=== PATIENT | male | born 1960 | race Caucasian/White ===

== ENCOUNTER 2017-05-02 07:43 | Emergency (ER) | payer OTHER ==
[2016-03-09 06:32] VITALS: BMI 38.0
[~2017-05-02 07:43] MED LIST: HYDROCODONE-APA1 TAB PO; LIPITOR20 MG PO
== END 2017-05-02 09:27 | disposition home or self-care (01) ==
LOC: D.ER 07:43
DX: M79.641 Pain in right hand (principal); G56.01 Carpal tunnel syndrome, right upper limb

== ENCOUNTER 2017-08-03 10:45 | Outpatient (CLI) | payer OTHER ==
[~2017-08-03] VITALS: Ht 180.3 cm; Wt 122.7 kg
--- NOTE | ~2017-08-03 | HEMODYNAMI ---
PATIENT:ERI LOMBARDI JR MEDICAL RECORD: [id number] : 56 LOCATION:[facility] ADMISSION DATE: 08/03/17 Generatedon:08/03/201714:30 Patient name: ERI LOMBARDI Patient #: [id number] SSN: : 1960 Date of study: 08/03/2017 Page: Of Hemodynamic Procedure Report Patient Data Patient Demographics Procedure consent was obtained First Name: ERI Gender: Male Last Name: MARIA C Suffix: Patient #: [id number] : 1960 Age: 57 year(s) Accession #: Race: Unknown [id number] Additional ID: [id number] Contact details Address: [place] [address] [place] [place] [facility] Zip code: [address] Past Medical History Allergies: No known allergies Admission Admission Data Admission Date: 08/03/2017 Admission Time: 10:45 Lab Results Lab Result Date: 08/03/2017 Lab Result Time: 0:00 Biochemistry Name Units Result Min Max BUN mg/dl 13 --(--*-)-- 7 18 Creatinine mg/dl 0.8 --(-*--)-- 0.6 1.3 CBC Name Units Result Min Max Hemoglobin g/dl 13.9 --(*---)-- 13.5 17.5 Procedure Procedure Types Cath Procedure Diagnostic Procedure [facility] w/Coronaries Miscellaneous Procedures Moderate Sedation up to 15 minutes Procedure Description Procedure Date Procedure Date: 08/03/2017 Procedure Start Time: 14:10 Procedure End Time: 14:30 Procedure Staff Name Function Clyde Quintero MD Performing Physician Ines Murphy RT Monitor Hansa Felder RT Scrub Alla Griffin RN Nurse Indication Angina Procedure Data Cath Procedure Fluoroscopy Diagnostic fluoroscopy Total fluoroscopy Time: 1.5 time: 1.5 min min Diagnostic fluoroscopy Total fluoroscopy dose: 571 dose: 571 mGy mGy Contrast Material Contrast Material Type Amount (ml) Isovue 300 62 Entry Location Entry Primary Successful Side Size Upsize Upsize Entry Closure Succes sful Closure Location (Fr) 1 (Fr) 2 (Fr) Remarks Device Remarks Femoral Right 5 Fr Exoseal artery Estimated blood loss: 10 ml Diagnostic catheters Device Type Used For End Catheter Placement MULTIPACK JL 4.0 5Fr Procedure catheter MULTIPACK 3DRC 5Fr Procedure catheter MULTIPACK Pigtail 5 Fr LV Angiography catheter Procedure Complications No complications Procedure Medications Medication Administration Route Dosage 0.9% NaCl I.V. 100 ml/hr Oxygen NC 2 l/min Lidocaine 2% added to field 20 Heparin Flush Bag added to field 2 bags (1000units/500ml NS) Fentanyl I.V. 50 mcg Versed I.V. 1 mg Versed I.V. 1 mg Fentanyl I.V. 50 mcg Versed I.V. 2 mg Fentanyl I.V. 50 mcg Hemodynamics Rest Heart Rate: 77 (bpm) Pressure Samples Time Site Value (mmHg) Purpose Heart Use Rate(bpm) 14:18 LV 124/-4,15 Snapshot 77 14:19 AO 116/70(90) Pullback 78 14:19 LV 125/-4,13 Pullback 78 Gradients Valve Time Site 1 Site 2 Mean SEP/DFP Peak To Heart Use (mmHg) (sec/min) Peak Rate (mmHg) (bpm) Aortic 14:19 LV AO 11 16 9 78 125/-4,13 116/70(90) Calculations Valve P-P Mean Valve Index Valve Source Name Gradient Area Flow (cm2) Aortic 9 11 9 11 Snapshots Pre Cath Intra NCS Post Cath Vital Signs Time Heart Resp SPO2 NIBP (mmHg) Rhythm Pain Sedation Rate (ipm) (%) Status Level (bpm) 13:58:36 70 17 100 154/91(123) NSR 0 (11) 10(A) , No pain 14:02:52 74 17 100 146/92(108) NSR 0 (11) 10(A) , No pain 14:07:16 61 21 99 147/86(110) NSR 0 (11) 10(A) , No pain 14:11:37 73 15 98 145/87(108) NSR 0 (11) 10(A) , No pain 14:15:53 75 16 98 143/86(105) NSR 0 (11) 9(A) , No pain 14:20:15 80 20 98 150/88(113) NSR 0 (11) 9(A) , No pain 14:24:39 79 18 98 134/82(102) NSR 0 (11) 10(A) , No pain 14:28:59 77 15 98 143/84(107) NSR 0 (11) 10(A) , No pain Medications Time Medication Route Dose Verified Delivered Reason Notes Effe ctiveness by by 13:57:38 0.9% NaCl I.V. 100 Clyde Alla used for ml/hr Leon Griffin RN procedure 13:57:46 Oxygen NC 2 Clyde Alla Per l/min Leon Griffin RN physician 13:57:53 Lidocaine 2% added 20ml Clyde Clyde for local to vial Leon Quintero MD anesthetic field 13:58:02 Heparin Flush added 2 Clyde Clyde used for Bag to bags Leon Quintero MD procedure (1000units/500ml field NS) 14:02:27 Fentanyl I.V. 50 Clyde Alla for mcg Leon Griffin RN sedation 14:02:36 Versed I.V. 1 mg Clyde Alla for Leon Griffin RN sedation 14:08:12 Versed I.V. 1 mg Clyde Alla for Leon Griffin RN sedation 14:08:20 Fentanyl I.V. 50 Clyde Alla for kriss Griffin RN sedation 14:13:15 Versed I.V. 2 mg Clyde Alla for Leon Griffin RN sedation 14:18:41 Fentanyl I.V. 50 Clyde Alla for kriss Griffin RN sedation Procedure Log Time Note 13:48:24 Diagnostic Cath Status : Elective 13:48:44 Indication : Angina 13:49:08 Alla Griffin RN sent for patient. Start room use. 13:49:09 Time tracking: Regular hours 13:49:14 Plan of Care:Hemodynamics will remain stable., Cardiac rhythm will remain stable., Comfort level will be maintained., Respiratory function will remain adequate., Patient/ family verbilizes understanding of procedure., Procedure tolerated without complication., Recovers from procedure without complications.. 13:51:52 Patient received from Pre/Post Procedure Room to [facility] 2 Alert and oriented. Tansferred to table in Supine position. 13:51:53 Warm blankets applied, and ankit hugger turned on for patient comfort. 13:51:53 Correct patient and procedure confirmed by team. 13:51:56 Signed procedure consent form obtained from patient. 13:52:09 H&P Date Dictated: 08/03/2017 Within 30 days and on chart.. 13:52:11 Pre-procedure instructions explained to patient. 13:52:15 Family in waiting room. 13:52:17 Patient NPO since Midnight. 13:57:22 Vital chart was started 13:57:38 0.9% NaCl 100 ml/hr I.V. was administered by Alla Griffin RN; used for procedure; 13:57:46 Oxygen 2 l/min NC was administered by Alla Griffin RN; Per physician; 13:57:53 Lidocaine 2% 20ml vial added to field was administered by Clyde Quintero MD; for local anesthetic; 13:58:02 Heparin Flush Bag (1000units/500ml NS) 2 bags added to field was administered by Clyde Quintero MD; used for procedure; 14:00:07 Patient allergic to No known allergies 14:00:10 Was the patient premedicated? Yes 14:00:12 Is patient on blood thinner?No 14:00:13 Patient diabetic? No. 14:00:17 Snore? Yes 14:00:19 Sleep apnea? No 14:00:25 Dentures? No ? 14:00:42 IV patent on arrival in left forearm with 0.9% NaCl at [facility]. 14:01:17 Lab Result : BUN 13 mg/dl 14:01:17 Lab Result : Hemoglobin 13.9 g/dl 14:01:17 Lab Result : Creatinine 0.8 mg/dl 14:01:21 Lab results completed and on chart. 14:01:25 Right groin area was prepped with chlora-prep and draped in sterile fashion 14:01:26 Alarms reviewed by R. N. 14::27 Sharps counted by scrub and verified by R.N. 14:01:27 Physician paged 14:01:28 Physician arrived 14::29 --------ALL STOP TIME OUT------ 14::29 Final Timeout: patient, procedure, and site verified with staff and physician. All members of the team are in agreement. 14:01:33 Right groin site verified by team. 14:01:37 Physical assessment completed. ASA score P 2 - A patient with mild systemic disease as per Clyde Quintero MD. 14:01:45 Sedation plan: IV Moderate Sedation Medication:Versed, Fentanyl 14:01:50 Use device set Femoral Dx 14:02:27 Fentanyl 50 mcg I.V. was administered by Alla Griffin RN; for sedation; 14:02:36 Versed 1 mg I.V. was administered by Alla Griffin RN; for sedation; 14:08:12 Versed 1 mg I.V. was administered by Alla Griffin RN; for sedation; 14:08:20 Fentanyl 50 mcg I.V. was administered by Alla Griffin RN; for sedation; 14:08:42 Zero performed for pressure channel P1 14:08:50 ACIST Syringe (39461) opened to sterile field. 14:08:50 Bag Decanter (2002S) opened to sterile field. 14:08:51 Medline Cath Pack ([id number]) opened to sterile field. 14:08:55 SHEATH 5FR [place] (OLC335) opened to sterile field. 14:08:56 DIAGNOSTIC WIRE .035 260cm J wire (282345) opened to sterile field. 14:08:59 ACIST Hand Control (17736) opened to sterile field. 14:08:59 ACIST Manifold (05719) opened to sterile field. 14:09:00 DIAGNOSTIC Multipack 5Fr catheter set ([id number]) opened to sterile field. 14:09:01 Tegaderm 4 x 4 (1626W) opened to sterile field. 14:09:02 PERCUTANEOUS ENTRY 19GA needle opened to sterile field. 14:10:06 Procedure started. 14:10:06 Full Disclosure recording started 14:10:26 Local anesthetic to right femoral artery with Lidocaine 2% by Clyde Quintero MD.INITIAL ACCESS ONLY 14:12:15 A 5 Fr sheath was inserted into the Right Femoral artery 14:12:39 A MULTIPACK JL 4.0 5Fr catheter was advanced over the wire and used for Procedure. 14:12:42 LCA angiography performed. 14:13:15 Versed 2 mg I.V. was administered by Alla Griffin RN; for sedation; 14:15:09 Catheter removed. 14:15:24 A MULTIPACK 3DRC 5Fr catheter was advanced over the wire and used for Procedure. 14:15:29 RCA angiography performed. 14:17:09 Catheter removed. 14:17:33 A MULTIPACK Pigtail 5 Fr catheter was advanced over the wire and used for LV Angiography. 14:17:41 LV gram done using SHARMA 14:18:41 Fentanyl 50 mcg I.V. was administered by Alla Griffin RN; for sedation; 14:19:00 EF : 55 % 14:19:46 Catheter removed. 14:24:27 EXOSEAL 5Fr (EX500) opened to sterile field. 14:26:50 Sheath removed intact; hemostasis achieved with Exoseal to the Right Femoral artery. 14:27:47 sheath exchanged for another 5 fr because it clotted off before the exoseal was placed. 14:28:14 Procedure ended.(Physican Out) 14:28:31 Fluoroscopy time 01.50 minutes. 14:28:36 Fluoroscopy dose: 571 mGy 14:28:36 Flurop Dose total: 571 14:28:40 Contrast amount:Isovue 300 62ml. 14:28:42 Sharps counted by scrub and verified by R.N. 14:28:43 Insertion/operative site no bleeding no hematoma. 14:28:47 Post right femoral artery:stable 14:28:49 Post Procedure Pulses reassessed and unchanged 14:28:55 Post procedure rhythm: unchanged. 14:28:58 Estimated blood loss: 10 ml 14:28:59 Post procedure instruction explained to patient.Patient verbalizes understanding. 14:29:16 Procedure type changed to Cath procedure, Diagnostic procedure, LHC, LHC w/Coronaries, Miscellaneous Procedures, Moderate Sedation up to 15 minutes 14:29:17 Procedure and supply charges have been captured, reviewed, submitted and are correct. 14:29:58 Procedure Complication : No complications 14:30:01 Vital chart was stopped 14:30:02 See physician's report for complete and final results. 14:30:03 Report given to Pre/Post Procedure Room. 14:30:06 Patient transfered to Pre/Post Procedure Room with Stretcher. 14:30:09 Procedure ended. 14:30:09 Full Disclosure recording stopped 14:30:12 End room use (Document Last) Device Usage Item Name Manufacture Quantity Catalog Hospital Part Current Minimal Lot# / Number Charge Number Stock Stock Serial# Code [facility] 1 13812 269632 332362 955818 20 Syringe Medical (97850) Systems Inc Bag Decanter Microtek 1 2001S 874188 56161 655114 5 (2001S) Medical Inc. Medline Cath Cardinal 1 [id number] 105165 53531 597785 5 Pack Health ([id number]) SHEATH 5FR Terumo 1 OAS910 702214 627887 195325 40 [place] (PLY537) DIAGNOSTIC St Maksim 1 008727 290759 696424 625457 30 WIRE .035 260cm J wire (048312) ACIST Hand Acist 1 12344 677107 716658 179087 5 Control Medical (79229) Systems Inc ACIST Acist 1 94445 388928 051129 437687 5 Manifold Medical (84613) Systems Inc DIAGNOSTIC Cardinal 1 QN5954 497805 01545 505300 30 Multipack Health 5Fr catheter set ([id number]) Tegaderm 4 x 3M 1 1626W 817573 659653 370998 5 4 (1626W) PERCUTANEOUS [facility] 1 [id number] 138729 495473 5 ENTRY 19GA needle MULTIPACK JL Cardinal 1 622397 5 4.0 5Fr Health catheter MULTIPACK Cardinal 1 708682 5 3DRC 5Fr Health catheter MULTIPACK Cardinal 1 617303 5 Pigtail 5 Fr Health catheter EXOSEAL 5Fr Cardinal 1 EX500 582837 917229 209975 10 (EX500) Health Signature Audit [place] Stage Time Signature Unsigned Intra-Procedure 08/03/2017 Ines Murphy 2:30:40 PM RT(R) Signatures Monitor : Ines Murphy Signature : RT Date : Time : [facility] [address] [place] [address]
[2017-08-03] MEDS ORDERED: PRAVACHOL20 MG PO (11:05)
[2017-08-03] MEDS ORDERED: LASIX40 MG PO (11:06)
[2017-08-03] MEDS ORDERED: INDOCIN25 MG PO (11:06)
[2017-08-03] MEDS ORDERED: BUMEX2 MG PO (11:08)
[2017-08-03 11:15] VITALS: BP 128/77; Ht 180.3 cm; Wt 122.7 kg
[2017-08-03 11:22] LABS: BASOPHILS 0.1 % (0-2); EOSINOPHILS 4.4 % (0-7); HEMATOCRIT 37.9 % (42.0-54.0); HEMOGLOBIN 12.8 g/dL (13.5-17.5); IMMATURE GRANULOCYTES 0.4 % (0-5); MCH 28.8 pg (26.0-34.0); MCHC 33.8 g/dL (31.0-37.0); MCV 85.4 fL (80.0-100.0); MEAN PLATELET VOLUME 9.4 fL (7.4-10.4); MONOCYTES 9.6 % (2-11); NEUTROPHILS 62.5 % (40-80); RBC 4.44 10x6/uL (4.20-6.10); RDW 15.5 % (11.5-14.5); WBC 8.5 10x3/uL (4.8-10.8)
[2017-08-03 11:31] LABS: ANION GAP 12.6 mmol/L (8-16); CALCIUM 10.1 mg/dL (8.5-10.1); CARBON DIOXIDE 32.5 mmol/L (21.0-32.0); CREATININE - SERUM 1.2 mg/dL (0.6-1.3); POTASSIUM - SERUM 3.1 mmol/L (3.5-5.1)
[2017-08-03 11:32] LABS: PLATELET COUNT 288 10x3/uL (130-400)
[2017-08-03] MEDS ORDERED: ISOSORBIDE MONO30 M1 PO (15:04)
[2017-08-05 13:14] LABS: EHRLICHIA CHAFF IGG Negative (Neg:<1:64); EHRLICHIA CHAFF IGM Negative (Neg:<1:20); HGE IGG TITER Negative (Neg:<1:64); HGE IGM TITER Negative (Neg:<1:20)
[2017-08-05 16:12] LABS: LYME WB - IGG P18 AB Absent (()); LYME WB - IGG P23 AB Absent (()); LYME WB - IGG P28 AB Absent (()); LYME WB - IGG P30 AB Absent (()); LYME WB - IGG P39 AB Absent (()); LYME WB - IGG P41 AB Present (()); LYME WB - IGG P45 AB Absent (()); LYME WB - IGG P58 AB Absent (()); LYME WB - IGG P66 AB Absent (()); LYME WB - IGG P93 AB Present (()); LYME WB - IGG WB INTERP Negative (()); LYME WB - IGM P23 AB Absent (()); LYME WB - IGM P39 AB Present (()); LYME WB - IGM P41 AB Present (()); LYME WB - IGM WB INTERP Positive (())
[2017-08-05 20:08] LABS: RMSF IGM 0.29 index (0.00-0.89)
[2017-08-10 12:15] LABS: F. TULARENSIS - IGG Negative (()); F. TULARENSIS - IGM Negative (())
== END 2017-08-03 17:10 | disposition home or self-care (01) ==
LOC: D.CATH 10:45
PROVIDERS: Internal Medicine Cardiovascular Disease
DX: I20.9 Angina pectoris, unspecified (principal); R94.30 Abnormal result of cardiovascular function study, unspecified; F17.200 Nicotine dependence, unspecified, uncomplicated; R06.02 Shortness of breath; Z01.812 Encounter for preprocedural laboratory examination